=== PATIENT | male | born 1950 | race Asian ===

== ENCOUNTER → 2017-11-17 | Outpatient (CLI) | payer MEDICARE | END | disposition home or self-care (01) | LOC: CFH 12:12 | PROVIDERS: ATTEND Internal Medicine | DX: K21.9 Gastro-esophageal reflux disease without esophagitis (principal); E04.1 Nontoxic single thyroid nodule | CPT/HCPCS: 74220; 76536 ==

== ENCOUNTER → 2018-01-27 | Outpatient (CLI) | payer MEDICARE ==
[~2018-01-27] MED LIST: AMINOPHYLLINE 25 MG/ML, 10ML ONE; AMLO2.5T PO; ASPI-496 PO; CLOP75TA PO; FURO20TA3 PO; LOSA100T6 PO; METO200T47 PO; PANT40TA5 PO; REGADENOSON 0.4 MG/5 ML SYRINGE ONE; SIMV40TA3 PO
== END | disposition home or self-care (01) ==
LOC: CVU 10:54
PROVIDERS: ATTEND Internal Medicine Cardiovascular Disease
DX: Z01.810 Encounter for preprocedural cardiovascular examination (principal); I08.0 Rheumatic disorders of both mitral and aortic valves; I10 Essential (primary) hypertension; I25.2 Old myocardial infarction
CPT/HCPCS: 78452; 93017; 93306; A9502; J0280; J2785

== ENCOUNTER 2018-02-10 07:04 | Observation (INO) | payer MEDICARE ==
[2018-02-08 11:14] LABS: BASOPHILS # (AUTO) 0.03 x10^3/uL (0-0.1); BASOPHILS % (AUTO) 0 % (0-1); EOSINOPHILS # (AUTO) 0.29 x10^3/uL (0-0.4); EOSINOPHILS % (AUTO) 4 % (1-7); LYMPHOCYTES # (AUTO) 1.84 x10^3/uL (1-3.4); LYMPHOCYTES % (AUTO) 25 % (22-44); MD NO; MEAN CORPUSCULAR HEMOGLOBIN 29.1 pg (27.5-34.5); MEAN CORPUSCULAR VOLUME 88.4 fL (81-97); MEAN PLATELET VOLUME 8.4 fL (7.4-10.4); MONOCYTES # (AUTO) 0.54 x10^3/uL (0.2-0.8); MONOCYTES % (AUTO) 7 % (2-9); NEUTROPHILS # (AUTO) 4.78 x10^3/uL (1.8-6.8); NEUTROPHILS % (AUTO) 64 % (42-75); PLATELET COUNT 201 x10^3/uL (130-400); RED BLOOD COUNT 4.94 x10^6/uL (4.38-5.82); RED CELL DISTRIBUTION WIDTH 13.9 % (9.4-14.8)
[2018-02-08 11:35] LABS: ANION GAP 10 mmol/L (5-15); CALCIUM 8.7 mg/dL (8.5-10.1); CHLORIDE 103 mmol/L (98-107); CREATININE 1.13 mg/dL (0.7-1.3)
[~2018-02-10] VITALS: Ht 165.1 cm; Wt 60.1 kg
[~2018-02-10 07:04] MED LIST changes: -AMINOPHYLLINE 25 MG/ML, 10ML ONE; -REGADENOSON 0.4 MG/5 ML SYRINGE ONE
[2018-02-10] MEDS ORDERED: BIVALIRUDIN 250 MG ONE (07:33)
[2018-02-10] MEDS ORDERED: NITROGLYCERIN 5 MG/ML, 10ML ONE (07:33)
[2018-02-10] MEDS ORDERED: TICAGRELOR 90 MG TABLET ONE (07:33)
[2018-02-10] MEDS ORDERED: VERAPAMIL 2.5 MG/ML, 2ML ONE (07:33)
[2018-02-10] MEDS ORDERED: LIDOCAINE 2%, 10ML ONE (07:33)
[2018-02-10] MEDS ORDERED: MIDAZOLAM 1 MG/ML, 5ML ONE (07:33)
[2018-02-10] MEDS ORDERED: HEPARIN 1,000 UNITS/ML, 10ML ONE (07:33)
[2018-02-10] MEDS ORDERED: FENTANYL PF 100 MCG/2ML ONE (07:33)
[2018-02-10] MEDS ORDERED: TRIA15CR3 TP (07:36)
[2018-02-10 07:44] VITALS: BP 144/76
[2018-02-10] MEDS ORDERED: ADENOSINE 6 MG/2 ML ONE (08:46)
[2018-02-10] MEDS ORDERED: SODIUM CHLORIDE 0.9% 1,000 ML IV SCH (09:37)
[2018-02-10] MEDS ORDERED: PHENYLEPHRINE 10 MG/ML ONE (09:40)
[2018-02-10] MEDS ORDERED: ASPIRIN 81 MG TABLET EC PO SCH ×2 (10:00)
[2018-02-10] MEDS ORDERED: TRIAMCINOLONE CRM 0.1%, 15GM TP PRN (10:00)
[2018-02-10] MEDS ORDERED: PANTOPROZOLE 40MG TABLET PO SCH (10:00)
[2018-02-10] MEDS ORDERED: ONDANSETRON 2MG/ML, 2ML IVPush PRN (10:00)
[2018-02-10] MEDS ORDERED: METOPROLOL SUCCINATE 100 MG TAB.ER.24H PO SCH (10:00)
[2018-02-10] MEDS ORDERED: ACETAMINOPHEN 325 MG TABLET PO PRN (10:00)
[2018-02-10] MEDS ORDERED: BISACODYL 5 MG EC TABLET PO PRN (10:00)
[2018-02-10] MEDS ORDERED: ZOLPIDEM 5MG TABLET PO PRN (10:00)
[2018-02-10] MEDS: CLOPIDOGREL 75 MG TABLET PO SCH (10:03)
[2018-02-10] MEDS: FUROSEMIDE 20 MG TABLET PO SCH (10:03)
[2018-02-10] MEDS: AMLODIPINE 2.5 MG TABLET PO SCH (10:05)
[2018-02-10] MEDS: ISOSORBIDE MONONITRATE ER 30 MG TABLET PO SCH (10:14)
[2018-02-10 16:18] VITALS: BP 113/66
[2018-02-10 19:06] VITALS: BP 128/65
[2018-02-10] MEDS ORDERED: SIMVASTATIN 40 MG TABLET PO SCH (21:00)
[2018-02-11 00:56] VITALS: BP 102/64
[2018-02-11 05:36] LABS: ALBUMIN 3.3 g/dL (3.4-5.0); ANION GAP 7 mmol/L (5-15); CALCIUM 8.6 mg/dL (8.5-10.1); CHLORIDE 107 mmol/L (98-107); CREATININE 1.05 mg/dL (0.7-1.3)
[2018-02-11 08:26] VITALS: BP 121/71
[2018-02-11] MEDS: ISOSORBIDE MONONITRATE ER 30 MG TABLET PO SCH (08:35)
[2018-02-11] MEDS: AMLODIPINE 2.5 MG TABLET PO SCH (08:36)
[2018-02-11] MEDS ORDERED: METO-93 PO (08:37)
[2018-02-11] MEDS ORDERED: LOSA100T6 PO (08:37)
[2018-02-11] MEDS: FUROSEMIDE 20 MG TABLET PO SCH (08:40)
[2018-02-11] MEDS: CLOPIDOGREL 75 MG TABLET PO SCH (08:41)
[2018-02-11] MEDS ORDERED: LOSARTAN 50MG TABLET PO SCH (09:00)
[2018-02-11] MEDS ORDERED: METOPROLOL SUCCINATE 100 MG TAB.ER.24H PO SCH (09:00)
[2018-02-11] MEDS ORDERED: CLOPIDOGREL 75 MG TABLET PO SCH (09:00)
== END 2018-02-11 10:41 | disposition home or self-care (01) ==
LOC: CACL 07:04 → 5SO 09:36 → CACL 09:53
PROVIDERS: ADMIT Internal Medicine Cardiovascular Disease; ATTEND Internal Medicine Cardiovascular Disease
DX: T82.855A Stenosis of coronary artery stent, initial encounter (principal); I25.10 Atherosclerotic heart disease of native coronary artery without angina pectoris; I42.9 Cardiomyopathy, unspecified; I21.4 Non-ST elevation (NSTEMI) myocardial infarction; I10 Essential (primary) hypertension; G89.29 Other chronic pain; E78.5 Hyperlipidemia, unspecified; R73.01 Impaired fasting glucose; R00.1 Bradycardia, unspecified; Y83.8 Other surgical procedures as the cause of abnormal reaction of the patient, or of later complication, without mention of misadventure at the time of the procedure; Y92.89 Other specified places as the place of occurrence of the external cause; Z98.61 Coronary angioplasty status; Z95.1 Presence of aortocoronary bypass graft
CPT/HCPCS: 36415; 80048; 82040; 85018; 85025; 92920; 93005; 93459; 99156; 99157; C1725; C1769; C1884; C1887; C1894; G0378; J0153; J0583; J1644; J2250; J2370; J3010; J3490; J7030; Q9967; 92928

== ENCOUNTER 2019-02-12 08:21 | Outpatient (CLI) | payer MEDICARE ==
[~2019-02-12 08:21] MED LIST changes: -AMLO2.5T PO; +AMLO2.5T5 PO; +LOSA100T14 PO; -LOSA100T6 PO; +METO-93 PO; +TRIA15CR61 TP
== END 2019-02-12 23:59 | disposition home or self-care (01) ==
LOC: CVU 08:21
PROVIDERS: ATTEND Internal Medicine Cardiovascular Disease
DX: I73.9 Peripheral vascular disease, unspecified (principal); I25.10 Atherosclerotic heart disease of native coronary artery without angina pectoris; Z95.1 Presence of aortocoronary bypass graft
CPT/HCPCS: 93922

== ENCOUNTER 2020-06-23 07:44 | Outpatient (CLI) | payer MEDICARE ==
[~2020-06-23 07:44] MED LIST changes: -PANT40TA5 PO; +PANT40TA6 PO; +REGADENOSON 0.4 MG/5 ML SYRINGE ONE; +SIMV40TA20 PO; -SIMV40TA3 PO
== END 2020-06-23 23:59 | disposition home or self-care (01) ==
LOC: CFH 07:44
PROVIDERS: ATTEND Internal Medicine Cardiovascular Disease
DX: I08.0 Rheumatic disorders of both mitral and aortic valves (principal); I10 Essential (primary) hypertension; I42.9 Cardiomyopathy, unspecified
CPT/HCPCS: 78452; 93017; 93306; A9502; J2785

== ENCOUNTER → 2020-10-15 | Outpatient (CLI) | payer MEDICARE ==
[~2020-10-15] MED LIST changes: +LOSA50TA14 PO; +METF500T17 PO; +METO50TA82 PO; -REGADENOSON 0.4 MG/5 ML SYRINGE ONE; +ROSU10TA2 PO
[2020-10-15 09:21] LABS: ALANINE AMINOTRANSFERASE 24 U/L (12-78); ALBUMIN 4.1 g/dL (3.4-5.0); CALCIUM 9.4 mg/dL (8.5-10.1); CREATININE 1.23 mg/dL (0.7-1.3)
[2020-10-15 09:23] LABS: ALKALINE PHOSPHATASE 70 U/L (45-117); BILIRUBIN,TOTAL 0.5 mg/dL (0.2-1.0); TOTAL PROTEIN 7.8 g/dL (6.4-8.2)
[2020-10-15 09:30] LABS: ANION GAP 3 mmol/L (5-15); CHLORIDE 107 mmol/L (98-107)
== END | disposition home or self-care (01) ==
LOC: STAR 08:01
PROVIDERS: ATTEND Internal Medicine
DX: Z01.818 Encounter for other preprocedural examination (principal); K63.5 Polyp of colon; I44.7 Left bundle-branch block, unspecified; Z20.828 Contact with and (suspected) exposure to other viral communicable diseases
CPT/HCPCS: 80053; 87635; 93005

== ENCOUNTER 2020-10-21 09:14 | Day surgery (SDC) | payer MEDICARE ==
[~2020-10-21] VITALS: Ht 165.1 cm; Wt 62.8 kg
[2020-10-21 09:37] VITALS: BP 155/79
[2020-10-21] MEDS ORDERED: CHLORHEXIDINE 15 ML UDC ONE (09:41)
[2020-10-21] MEDS ORDERED: LACTATED RINGERS 1,000 ML IV SCH (10:00)
[2020-10-21] MEDS ORDERED: CHLORHEXIDINE 15 ML UDC MM ONE (10:00)
[2020-10-21] MEDS ORDERED: PROPOFOL 50 ML ONE (10:45)
[2020-10-21] MEDS ORDERED: LABETALOL 5MG/ML, 20ML IV PRN (12:00)
[2020-10-21] MEDS ORDERED: ONDANSETRON 2MG/ML, 2ML IVPush PRN (12:00)
[2020-10-21] MEDS ORDERED: hydrALAzine 20 MG/ML, 1ML IV PRN (12:00)
[2020-10-21] MEDS ORDERED: FENTANYL PF 100 MCG/2ML IV PRN (12:00)
== END 2020-10-21 13:15 | disposition home or self-care (01) ==
LOC: OUT 09:14
PROVIDERS: ATTEND Internal Medicine
DX: D12.3 Benign neoplasm of transverse colon (principal); K57.30 Diverticulosis of large intestine without perforation or abscess without bleeding; E11.9 Type 2 diabetes mellitus without complications; I10 Essential (primary) hypertension; E78.5 Hyperlipidemia, unspecified; I25.10 Atherosclerotic heart disease of native coronary artery without angina pectoris; Z79.899 Other long term (current) drug therapy; Z95.5 Presence of coronary angioplasty implant and graft
CPT/HCPCS: 45381; 45385; 82962; 88305; J2704; J7120

== ENCOUNTER 2020-11-22 08:55 | Emergency (ER) | payer MEDICARE ==
[~2020-11-22] VITALS: Ht 165.1 cm; Wt 64.1 kg
--- NOTE | 2020-11-22 09:05 | NUR ---
LAYNE [phone] DAUGHTER
[2020-11-22] MEDS ORDERED: ACETAMINOPHEN 500 MG TABLET ONE (09:27)
[2020-11-22] MEDS ORDERED: ACETAMINOPHEN 500 MG TABLET PO ONE (09:30)
--- NOTE | 2020-11-22 09:32 | NUR ---
PT SITTING UP IN BED, LAB AND DAUGHTER AT BEDSIDE. 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 PT GIVEN MEDS PER DEC. NADNanette.
--- NOTE | 2020-11-22 10:01 | NUR ---
[facility] ELIZABETH AT BEDSIDE TO DRAW LABS
--- NOTE | 2020-11-22 10:18 | NUR ---
PT RESTING IN BED. NO CHANGES. PLAN OF CARE DISCUSED.
[2020-11-22 10:20] LABS: BASOPHILS % (AUTO) 1 % (0-1); EOSINOPHILS % (AUTO) 0 % (1-7); LYMPHOCYTES % (AUTO) 6 % (22-44); MEAN CORPUSCULAR HEMOGLOBIN 29.2 pg (27.5-34.5); MEAN CORPUSCULAR HGB CONC 33.4 g/dL (33.2-36.2); MEAN PLATELET VOLUME 8.6 fL (7.4-10.4); MONOCYTES % (AUTO) 6 % (2-9); NEUTROPHILS % (AUTO) 88 % (42-75); PLATELET COUNT 159 x10^3/uL (130-400); RED CELL DISTRIBUTION WIDTH 13.8 % (9.4-14.8)
[2020-11-22 10:27] LABS: ALANINE AMINOTRANSFERASE 20 U/L (12-78); ANION GAP 7 mmol/L (5-15); CALCIUM 8.9 mg/dL (8.5-10.1); CHLORIDE 106 mmol/L (98-107); CREATININE 1.33 mg/dL (0.7-1.3)
[2020-11-22 10:29] LABS: ALKALINE PHOSPHATASE 69 U/L (45-117); BILIRUBIN,TOTAL 0.5 mg/dL (0.2-1.0); MD NO; TOTAL PROTEIN 7.4 g/dL (6.4-8.2)
[2020-11-22] MEDS ORDERED: NAPROXEN 500 MG TABLET PO ONE (10:30)
[2020-11-22] MEDS ORDERED: NAPROXEN 500 MG TABLET ONE (10:34)
--- NOTE | 2020-11-22 10:44 | NUR ---
DR. COLE AT BEDSIDE TALKING ABOUT PLAN OF CARE
[2020-11-22 10:55] VITALS: BP 110/56
== END 2020-11-22 11:11 | disposition home or self-care (01) ==
LOC: ED 09:07
DX: T88.1XXA Other complications following immunization, not elsewhere classified, initial encounter (principal); Z20.822 Contact with and (suspected) exposure to COVID-19; R50.9 Fever, unspecified; R51.9 Headache, unspecified; M79.10 Myalgia, unspecified site; I10 Essential (primary) hypertension; I25.10 Atherosclerotic heart disease of native coronary artery without angina pectoris; K21.9 Gastro-esophageal reflux disease without esophagitis; I44.7 Left bundle-branch block, unspecified; Z86.73 Personal history of transient ischemic attack (TIA), and cerebral infarction without residual deficits
CPT/HCPCS: 71045; 80053; 83605; 84145; 85025; 87040; 87635; 93005; 99285